=== PATIENT | male | born 1955 | race Two or more races ===

== ENCOUNTER 2019-10-04 21:20 | Emergency (ER) | payer BC ==
[2019-10-04 21:26] VITALS: BP 147/88; PULSE 102; TEMP 97.5; BMI 29.8
--- NOTE | 2019-10-04 22:22 | PDOC ---
History of Present Illness - General Chief Complaint: Shortness of Breath Stated Complaint: SOB Time Seen by Provider: 10/04/19 22:21 - History of Present Illness Initial Comments: HPI: 63yo M with PMH of diabetes presenting with shortness of breath. Patient recently had hernia surgery at [facility] two days ago on . Patient reports new-onset shortness of breath. The dyspnea worsens while he is talking, but not when he walks or go up stairs. No chest pain or cough. No hemoptysis, no hormone use, no history of DVT or PE. Post-surgical pain is controlled with percocet. Had normal bowel movements today. Denies leg pain or swelling. Had chills and a fever on Saturday for which he took motrin. No sick contacts or recent travel. PCP: Dr. Cotton Cardio: Dr. Galvin ROS: Constitutional: +fever, no chills HEENT: no throat pain, no dysphagia Cardiovascular: no chest pain, no palpitations Respiratory: no cough, +shortness of breath Gastrointestinal: no abdominal pain, no nausea Genitourinary: no dysuria, no hematuria Musculoskeletal: no myalgia, no arthralgia Skin: no rash, no itching Neurologic: no headache, no weakness Psych: no agitation, no anxiety PE: General: Awake, alert, and fully oriented, in no acute distress Head: No signs of trauma Eyes: EOMI, sclera anicteric ENT: Moist mucus membranes Neck: Normal ROM, supple Lungs: Lungs clear, Normal breath sounds Cardio: Regular rhythm, S1 and S2 present Abdomen: Soft, nontender. Surgical site is clean/dry/intact Extremities: Normal range of motion, Distal pulses present SKIN: Warm, Dry, normal turgor Neurologic: Cranial nerves II through XII grossly intact. Normal speech ED Course/MDM: DDX including but not limited to PE, PNA, asthma/COPD Labs, EKG, CXR Concern for PE with tachycardia and shortness of breath in the setting of recent surgery CTA Chest EKG: vee 101, QTc 427, sinus 10/04/19 22:21 CBC WBC 6.9 K/mm3 (4.0-10.0) 10/04/19 22:50 RBC 5.14 M/mm3 (4.00-5.60) 10/04/19 22:50 Hgb 15.9 GM/dL (11.7-16.9) 10/04/19 22:50 Hct 46.4 % (35.4-49) 10/04/19 22:50 MCV 90.3 fl (80-96) 10/04/19 22:50 MCH 31.0 pg (25.7-33.7) 10/04/19 22:50 MCHC 34.3 g/dl (32.0-35.9) 10/04/19 22:50 RDW 13.2 % (11.9-15.9) 10/04/19 22:50 Plt Count 243 K/MM3 (134-434) 10/04/19 22:50 MPV 9.1 fl (7.5-11.1) 10/04/19 22:50 Absolute Neuts (auto) 2.9 K/mm3 (1.5-8.0) 10/04/19 22:50 Neutrophils % 41.6 % (42.8-82.8) L 10/04/19 22:50 Lymphocytes % 41.9 % (8-40) H 10/04/19 22:50 Monocytes % 11.2 % (3.8-10.2) H 10/04/19 22:50 Eosinophils % 4.6 % (0-4.5) H 10/04/19 22:50 Basophils % 0.7 % (0-2.0) 10/04/19 22:50 Nucleated RBC % 0 % (0-0) 10/04/19 22:50 No leukocytosis CMP Sodium 132 mmol/L (136-145) L 10/04/19 22:50 Potassium 4.6 mmol/L (3.5-5.1) 10/04/19 22:50 Chloride 96 mmol/L (98-107) L 10/04/19 22:50 Carbon Dioxide 28 mmol/L (21-32) 10/04/19 22:50 Anion Gap 7 MMOL/L (8-16) L 10/04/19 22:50 BUN 14.2 mg/dL (7-18) 10/04/19 22:50 Creatinine 1.2 mg/dL (0.55-1.3) 10/04/19 22:50 Est GFR (CKD-EPI)AfAm 75.19 10/04/19 22:50 Est GFR (CKD-EPI)NonAf 64.87 10/04/19 22:50 Random Glucose 295 mg/dL (74-106) H 10/04/19 22:50 Calcium 10.2 mg/dL (8.5-10.1) H 10/04/19 22:50 Total Bilirubin 0.9 mg/dL (0.2-1) 10/04/19 22:50 AST 66 U/L (15-37) H 10/04/19 22:50 ALT 73 U/L (13-61) H 10/04/19 22:50 Alkaline Phosphatase 156 U/L (45-117) H 10/04/19 22:50 Creatine Kinase 55 U/L (26-308) 10/04/19 22:50 Troponin I < 0.02 ng/ml (0.00-0.05) 10/04/19 22:50 B-Natriuretic Peptide 69.1 pg/ml (5-125) 10/04/19 22:50 Total Protein 8.0 g/dl (6.4-8.2) 10/04/19 22:50 Albumin 3.9 g/dl (3.4-5.0) 10/04/19 22:50 Electroltyes unremarkable Mild transaminitis Tpn undetectable Normal BNP D-dimer elevated CTA Chest pending 10/05/19 00:38 CTA as read by imaging public health nutritionist: "FINDINGS: No large central PE but there is moderately suboptimal opacification of the pulmonary arteries. There is no aortic aneurysm or dissection. Heart size is normal. The trachea and bronchi are patent. There is no pleural or pericardial effusion. The lungs are clear other than mild bilateral subsegmental atelectasis. No fractures identified. The upper abdominal structures are normal. IMPRESSION: No acute pathology but there is moderately suboptimal opacification of the pulmonary arteries." CXR: "EXAM#: TYPE/EXAM: RESULT: [id number] RAD/CHEST X-RAY PORTABLE* Single view AP portable chest Clinical history: Shortness of breath Comparison studies: None Trachea midline, normal heart size with no infiltrate. Normal aeration in the left lung. There may be blunting and subsegmental atelectasis in the right lung base, clinical correlation for the possibility of pneumonia and/or small effusion right lung base. Normal aeration noted in the right upper lobe. 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 Impression: Possible atelectasis and/or infiltrate suspected in the right lung base, clinical correlation for the possibility of pneumonia. Prominence in the right hilum which could be vascular due to ectasia of the ascending thoracic aorta, clinical correlation. Reported By: Stan Gatica MD 10/04/19 [id number] " Will cover for pneumonia Patient given incentive spirometer 10/05/19 02:12 Patient is of sound mind and has capacity to make decisions. Benefits/risks explained to patient and they voiced understanding. Patient refused admission and decided to leave against medical advice. Signed AMA form. Past History - Past Medical History Allergies/Adverse Reactions: Allergies Allergy/AdvReac Type Severity Reaction Status Date / Time No Known Allergies Allergy Verified 10/04/19 21:26 Home Medications: Ambulatory Orders Glipizide [Glipizide Xl] 2.5 mg PO 10/04/19 Metformin HCl [Glucophage] 500 mg PO 10/04/19 Azithromycin [Zithromax -] 250 mg PO DAILY #4 tablet 10/05/19 COPD: No - Surgical History Abdominal Surgery: Yes (HERNIA) - Psycho Social/Smoking Cessation Hx Smoking History: Never smoked *Physical Exam - Vital Signs Last Vital Signs Temp Pulse Resp BP Pulse Ox 97.5 F L 102 H 18 147/88 94 L 10/04/19 21:22 10/04/19 21:22 10/04/19 21:22 10/04/19 21:22 10/04/19 21:22 ED Treatment Course - LABORATORY CBC & Chemistry Diagram: 10/04/19 22:50 10/04/19 22:50 Discharge - Discharge Information Problems reviewed: Yes Clinical Impression/Diagnosis: Shortness of breath Condition: Stable Disposition: AGAINST MEDICAL ADVICE - Additional Discharge Information Prescriptions: Azithromycin [Zithromax -] 250 mg PO DAILY #4 tablet - Follow up/Referral Referrals: Enrike Cotton [Primary Care Provider] - - Patient Discharge Instructions Patient Printed Discharge Instructions: How to Use an Incentive Spirometer Additional Instructions: You were seen in the emergency department for shortness of breath. We did blood work which was within normal limits. A CT scan of your chest did not show a blood clot. A chest xray showed findings suspicious for pneumonia. We gave you IV antibiotics while you were here. Antibiotics prescription sent to your pharmacy. Use the incentive spirometer regularly, about ten times per hour. As discussed we recommended admission, but you declined. Not staying in the hospital can lead to multiple complications including, but not limited to permanent disability and . Should you reconsider you should return to the emergency department for evaluation. Follow-up with your primary care doctor within 72 hours to discuss this visit and to further evaluate your symptoms. Call tomorrow morning and make an appointment. Your workup is not complete until you do so. Immediate medical attention is required if: you pass out, have any chest pain, shortness of breath, severe headaches, changes in vision, focal numbness or weakness, any severe abdominal pain, any black tarry stool, or any new or concerning symptoms. If you think you are having an emergency, call for emergency medical services or present to the emergency department right away. - Post Discharge Activity
--- NOTE | 2019-10-04 22:52 | PDOC ---
Attending Attestation - Resident Resident Name: Fanny DorantesMonisha - ED Attending Attestation I have performed the following: I have examined & evaluated the patient, The case was reviewed & discussed with the resident, I agree w/resident's findings & plan - HPI HPI: 10/05/19 00:50 Pt comes with SOB and hypoxemia. He had herniorrhaphy last week. No swelling of his extremities. No smoking and no fevers. Pt states that he has no chest pain and has no SOB with movement - Physicial Exam PE: 10/05/19 00:53 Agree with resident exam - Medical Decision Making 10/05/19 00:56 EKG tachy O2 94% CXR shows atelectasis vs infiltrate. Pt had cultures drawn and placed on abx Pt will have d dimer drawn as he is post surg and that is a risk factor for PE. D dimer + so he will have a CTA. 10/05/19 02:07 Referring Physician: JASKARAN GUO Patient Name: JAYDON RICK THIS IS A PRELIMINARY REPORT FROM [facility] QUALIFIED DATE OF SERVICE: 2019-10-05 00:36:27 IMAGES: [id number] EXAM: CHEST CTA HISTORY: Shortness of breath COMPARISON: None. FINDINGS: No large central PE but there is moderately suboptimal opacification of the pulmonary arteries. There is no aortic aneurysm or dissection. Heart size is normal. The trachea and bronchi are patent. There is no pleural or pericardial effusion. The lungs are clear other than mild bilateral subsegmental atelectasis. No fractures identified. The upper abdominal structures are normal. IMPRESSION: No acute pathology but there is moderately suboptimal opacification of the pulmonary arteries. 10/10/19 19:49 Pt is feeling better and he wants to go home and follow with his doctors/ surgeons Heart Score/ECG Review - Coldspring Coldspring: Normal - P and DE Delta Wave(s) Present: No WPW: No - QRS Poor R Wave Progression: No Q Wave Present: No - ST and T Early Repolarization: No Non Specific ST-T Wave changes: No - ECG Impressions Normal ECG: Yes Non-specific ST Elevation: No Ischemic Changes: No Bradycardia: No Tachycardia: Sinus Torsades kiran Pointes: No WPW: No
[2019-10-04 23:09] LABS: BASO % 0.7 % (0-2.0); EOS % 4.6 % (0-4.5); HEMATOCRIT 46.4 % (35.4-49); HEMOGLOBIN 15.9 GM/dL (11.7-16.9); LYMPH % 41.9 % (8-40); MCHC 34.3 g/dl (32.0-35.9); MEAN CELL VOLUME 90.3 fl (80-96); MEAN PLT VOLUME 9.1 fl (7.5-11.1); MONO % 11.2 % (3.8-10.2); NEUT % 41.6 % (42.8-82.8); PLATELET COUNT 243 K/MM3 (134-434); RBC 5.14 M/mm3 (4.00-5.60); RDW 13.2 % (11.9-15.9); WHITE BLOOD COUNT 6.9 K/mm3 (4.0-10.0)
[2019-10-04] MEDS ORDERED: AZITHROMYCIN IVPB 500 MG in DEXTROSE 5%-WATER - 250 ML IVPB ONE (23:29)
[2019-10-04] MEDS ORDERED: CEFTRIAXONE 1 GM in DEXTROSE 5%-WATER - 50 ML IVPB ONE (23:29)
[2019-10-04 23:33] LABS: ALBUMIN 3.9 g/dl (3.4-5.0); BILIRUBIN,TOTAL 0.9 mg/dL (0.2-1); BLOOD UREA NITROGEN 14.2 mg/dL (7-18); CALCIUM 10.2 mg/dL (8.5-10.1); CREATININE 1.2 mg/dL (0.55-1.3); POTASSIUM 4.6 mmol/L (3.5-5.1)
[2019-10-04 23:35] LABS: N-TERMINAL BNP 69.1 pg/ml (5-125)
[2019-10-04] MEDS ORDERED: AZITHROMYCIN IVPB 500 MG/250 ML BAG IVPB ONE (23:45)
[2019-10-04] MEDS ORDERED: CEFTRIAXONE 1 GM/50 ML BAG ONE (23:46)
[2019-10-05 00:03] LABS: INR 0.92 (0.83-1.09); PROTHROMBIN TIME (PATIENT) 10.8 SEC (9.7-13.0)
[2019-10-05] MEDS ORDERED: SODIUM CHLORIDE 0.9% 500 ML INFUS.BAG IV ONE (02:18)
--- NOTE | 2019-10-05 09:04 | EKG ---
Test Reason : Blood Pressure : / mmHG Vent. Rate : 101 BPM Atrial Rate : 101 BPM P-R Int : 148 ms QRS Dur : 086 ms QT Int : 330 ms P-R-T Axes : 058 018 039 degrees QTc Int : 427 ms SINUS TACHYCARDIA OTHERWISE NORMAL ECG NO PREVIOUS ECGS AVAILABLE Confirmed by Maciel Meade ([id number]) on 10/05/2019 9:04:14 AM Referred By: Confirmed By:Maciel Meade
== END 2019-10-05 03:20 | disposition left against medical advice (07) ==
LOC: JER 21:20
DX: J18.9 Pneumonia, unspecified organism (principal); E11.9 Type 2 diabetes mellitus without complications; Z79.84 Long term (current) use of oral hypoglycemic drugs; Z98.890 Other specified postprocedural states
CPT/HCPCS: 36415; 71045-TC-FY; 71275-TC; 80053; 82550; 83880; 84484; 85025; 85379; 85610; 87040; 93005; 93010; 99285-25

== ENCOUNTER 2020-08-29 15:56 | Emergency (ER) | payer BC ==
[2020-08-29 16:10] VITALS: BP 141/93; PULSE 73; TEMP 98.3; BMI 29.3
[2020-08-29] MEDS ORDERED: PROPOFOL 200 MG/20 ML VIAL IVPUSH ONE (17:24)
[2020-08-29] MEDS ORDERED: IBUPROFEN 600 MG TABLET (FP) PO ONE ×2 (17:39→17:41)
== END 2020-08-29 17:48 | disposition home or self-care (01) ==
LOC: JER 15:56
DX: S43.004A Unspecified dislocation of right shoulder joint, initial encounter (principal)
CPT/HCPCS: 73030-TC-RT-FY; 99283-25